=== PATIENT | female | born 1995 | race American Indian/Alaskan Native ===

== ENCOUNTER 2019-08-16 18:05 | Emergency (ER) | payer MEDICAID ==
--- NOTE | 2019-08-16 18:12 | Emergency Department Report ---
Blank Doc - Documentation Documentation: 23-year-old female that presents SOB. Was sent by OBGYN to r/o PE. Stated is about 33 weeks . This initial assessment/diagnostic orders/clinical plan/treatment(s) is/are subject to change based on patient's health status, clinical progression and re- assessment by fellow clinical providers in the ED. Further treatment and workup at subsequent clinical providers discretion. Patient/guardians urged not to elope from the ED as their condition may be serious if not clinically assessed and managed. Initial orders include: 1- Patient sent to [facility] for further evaluation and treatment 2- labs 3- EKG
[2019-08-16 18:59] LABS: Basophils % (Auto) 0.3 % (0.0-1.8); Eosinophils # (Auto) 0.2 K/mm3 (0.0-0.4); Eosinophils % (Auto) 2.2 % (0.0-4.3); Hematocrit 36.3 % (30.3-42.9); Hemoglobin 11.9 gm/dl (10.1-14.3); Lymphocytes # (Auto) 2.4 K/mm3 (1.2-5.4); Lymphocytes % (Auto) 22.7 % (13.4-35.0); Mean Corpuscular HGB Conc 33 % (30-34); Mean Corpuscular Volume 84 fl (79-97); Monocytes % (Auto) 9.6 % (0.0-7.3); Platelet Count 203 K/mm3 (140-440); Red Blood Count 4.34 M/mm3 (3.65-5.03); Red Cell Distribution Width 13.2 % (13.2-15.2)
[2019-08-16 19:10] LABS: INR 1.07 (0.87-1.13)
[2019-08-16 19:11] LABS: Partial Thromboplastin Time 26.7 Sec. (24.2-36.6)
[2019-08-16 19:20] LABS: BUN/Creatinine Ratio 6; Blood Urea Nitrogen 3 mg/dL (7-17); Calcium 8.9 mg/dL (8.4-10.2); Hemolysis Index 6
--- NOTE | 2019-08-16 19:47 | Emergency Department Report ---
HPI - General Chief Complaint: Dyspnea/Respdistress Time Seen by Provider: 08/16/19 18:11 - HPI HPI: 23-year-old -[place] female presents to the emergency department, sent in by her [employer] Dr. Azevedo, to rule out a pulmonary embolism. The patient is currently 33 weeks and is . She does have a history of childhood asthma. She has been complaining of some intermittent shortness of breath for the past 3-4 months. She says that the shortness of breath will occur when she is climbing stairs, with too much exertion. No cough, no fever, no chest pain. The patient does have some lower extremity swelling but that has been chronic throughout her . She does not smoke cigarettes and has not been exposed to any smoke at home. No recent travel. ED Past Medical Hx - Past Medical History Previous Medical History?: Yes Hx Hypertension: No Hx Diabetes: No Hx Deep Vein Thrombosis: No Hx Renal Disease: No Hx Sickle Cell Disease: No Hx Seizures: No Hx Asthma: Yes (as a child. no inhaler use) Hx HIV: No - Surgical History Past Surgical History?: No - Social History Smoking Status: Never Smoker Substance Use Type: None - Medications Home Medications: Home Medications Medication Instructions Recorded Confirmed Last Taken Type Bisacodyl [Dulcolax suppos] 10 mg DC ONCE PRN #5 supp.rect 09/20/18 Unknown Rx Polyethylene Glycol 3350 [Miralax 17 gm PO BID PRN #14 packet 09/20/18 Unknown Rx 3350] ED Review of Systems ROS: Stated complaint: 33 WKS /SENT BY DR ARTEAGA BLOOD CLOTS Other details as noted in HPI Comment: All other systems reviewed and negative Constitutional: denies: chills, fever Respiratory: shortness of breath, SOB with exertion. denies: cough Cardiovascular: edema (chronic). denies: chest pain Gastrointestinal: denies: abdominal pain, vomiting Genitourinary: denies: dysuria, discharge Musculoskeletal: denies: back pain, arthralgia Skin: denies: rash, lesions Neurological: denies: headache, weakness Physical Exam - Physical Exam Vital Signs: Vital Signs 08/16/19 18:09 Temperature 98.3 F Pulse Rate 109 H Respiratory 16 Rate Blood Pressure 134/68 O2 Sat by Pulse 98 Oximetry Physical Exam: GENERAL: The patient is well-developed well-nourished. HENT: Normocephalic. Atraumatic. Patient has moist mucous membranes. EYES: Extraocular motions are intact. NECK: Supple. Trachea is midline. CHEST/LUNGS: Clear to auscultation. No tachypnea or accessory muscle use. There is no respiratory distress noted. HEART/CARDIOVASCULAR: Regular. There is no tachycardia. There is no murmur. ABDOMEN: Abdomen is soft, nontender. Patient has normal bowel sounds. There is some mid to lower abdominal distention secondary to gravid uterus. SKIN: Skin is warm and dry. NEURO: The patient is awake, alert, and oriented. The patient is cooperative. The patient has no focal neurologic deficits. Normal speech. MUSCULOSKELETAL: There is no tenderness or deformity. There is no evidence of acute injury. ED Course Vital Signs 08/16/19 18:09 Temperature 98.3 F Pulse Rate 109 H Respiratory 16 Rate Blood Pressure 134/68 O2 Sat by Pulse 98 Oximetry ED Medical Decision Making - Lab Data Result diagrams: 08/16/19 18:35 08/16/19 18:35 - EKG Data -: EKG Interpreted by Ne EKG shows normal: sinus rhythm, axis, intervals, QRS complexes, ST-T waves Rate: normal - EKG Data When compared to previous EKG there are: previous EKG unavailable Interpretation: normal EKG - Radiology Data Radiology results: report reviewed CTA CHEST WITH IV CONTRAST INDICATION / CLINICAL INFORMATION: SOB, elevated dimer. TECHNIQUE: Axial CT images were obtained through the chest after injection of IV contrast. 3 plane MIP and/or 3D reconstructions were produced. All CT scans at this location are performed using CT dose reduction for ALARA by means of automated exposure control. COMPARISON: None available. FINDINGS: PULMONARY ARTERIES: No pulmonary emboli. THORACIC AORTA: No significant abnormality. HEART: No significant abnormality. CORONARY ARTERIES: No significant calcification. PLEURA: No pleural effusion. No pneumothorax. LYMPH NODES: No significant adenopathy. LUNGS: No acute air space or interstitial disease. ADDITIONAL FINDINGS: None. UPPER ABDOMEN: No acute findings. SKELETAL STRUCTURES: No significant osseous abnormality. IMPRESSION: 1. No CT evidence for pulmonary embolism. 2. No acute findings. - Medical Decision Making Patient was sent in by her [employer] to rule out a pulmonary embolism secondary to some intermittent shortness of breath she has been having. Most likely do secondary to her status. Vital signs stable throughout her ED course including being afebrile. There is mild tachycardia but no hypoxia. EKG is normal without ST elevation LA, ischemia or dysrhythmia. Labs are unremarkable except for an elevated d-dimer which is equivocal. We had a long discussion regarding the risks versus benefits of getting the CT angiography study while and the patient would like to proceed. CTA was negative for pulmonary was a more any other acute process. She will be discharged home to follow up with primary care and [employer]. She will return to the ER with any worsening of her symptoms or any acute distress. - Differential Diagnosis PE, , pneumonia, CHF Critical Care Time: No Critical care attestation.: If time is entered above; I have spent that time in minutes in the direct care of this critically ill patient, excluding procedure time. ED Disposition Clinical Impression: Shortness of breath during Qualifiers: Weeks of gestation: unspecified Qualified Code(s): Z34.90 - Encounter for supervision of normal , unspecified, unspecified trimester Disposition: DC-01 TO HOME OR SELFCARE Is pt being admited?: No Condition: Stable Instructions: (ED), Dyspnea (ED) Additional Instructions: Please follow-up with your primary care physician and [employer]. Return to the emergency Department with any worsening of your symptoms or any acute distress. Referrals: CHIP AZEVEDO MD [Referring] - 2-3 Days Time of Disposition: 21:42
[2019-08-16] MEDS ORDERED: HYDROGEN PEROXIDE ONE (20:31)
--- NOTE | 2019-08-16 21:23 | Cat Scan Report ---
CTA CHEST WITH IV CONTRAST INDICATION / CLINICAL INFORMATION: SOB, elevated dimer. TECHNIQUE: Axial CT images were obtained through the chest after injection of IV contrast. 3 plane MIP and/or 3D reconstructions were produced. All CT scans at this location are performed using CT dose reduction f or ALARA by means of automated exposure control. COMPARISON: None available. FINDINGS: PULMONARY ARTERIES: No pulmonary emboli. THORACIC AORTA: No significant abnormality. HEART: No significant abnormality. CORONARY ARTERIES: No significant calcification. PLEURA: No pleural effusion. No pneumothorax. LYMPH NODES: No significant adenopathy. LUNGS: No acute air space or interstitial disease. ADDITIONAL FINDINGS: None. UPPER ABDOMEN: No acute findings. SKELETAL STRUCTURES: No significant osseous abnormality. IMPRESSION: 1. No CT evidence for pulmonary embolism. 2. No acute findings. Signer Name: Alexy Cordova MD Signed: 08/16/2019 9:19 PM Workstation Name: [id number]
[2019-08-16 22:06] VITALS: BP 126/71
== END 2019-08-16 22:06 | disposition home or self-care (01) ==
LOC: ED 18:05
DX: O99.513 Diseases of the respiratory system complicating pregnancy, third trimester (principal); J45.909 Unspecified asthma, uncomplicated; Z3A.33 33 weeks gestation of pregnancy; Z34.90 Encounter for supervision of normal pregnancy, unspecified, unspecified trimester
CPT/HCPCS: 36415; 71275; 80048; 84484; 85025; 85379; 85610; 85730; 93005; 93010; 99284; Q9967

== ENCOUNTER 2019-09-25 20:25 | Outpatient (CLI) | payer MEDICAID ==
[2019-09-25 22:58] LABS: Bacteria,Urine 2+ /HPF (Negative); Bilirubin,Urine NEG (Negative); Blood,Urine SM (Negative); Color,Urine Straw (Yellow); Protein,Urine <15 mg/dL mg/dL (Negative); Urobilinogen,Urine < 2.0 mg/dL (<2.0)
[2019-09-25] MEDS ORDERED: NITRAZINE (URINE TESTING PAPER) MC ONE (23:29)
--- NOTE | 2019-09-26 01:40 | Ultrasound Report ---
Obstetrical ultrasound limited INDICATION: Premature rupture of membranes. IMPRESSION: SERGEY measures 4.8 cm which is decreased. The heart rates 162 bpm. The fetus is in th e breech position. Signer Name: Brandon Cheney MD Signed: 09/26/2019 1:35 AM Workstation Name: [id number]
== END 2019-09-26 02:16 | disposition left against medical advice (07) ==
LOC: TRG 20:25
PROVIDERS: ATTEND Obstetrics & Gynecology
DX: O47.1 False labor at or after 37 completed weeks of gestation (principal); O42.92 Full-term premature rupture of membranes, unspecified as to length of time between rupture and onset of labor; Z3A.38 38 weeks gestation of pregnancy
CPT/HCPCS: 59025; 76815; 81001